=== PATIENT | male | born 1995 | race Caucasian/White ===

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

== ENCOUNTER 2018-02-18 10:16 | Emergency (ER) | payer BC, OTHER ==
--- NOTE | 2018-02-18 10:42 | EDM.PDOC ---
ED HPI GENERAL MEDICAL PROBLEM - General Chief Complaint: Skin Complaint Stated Complaint: BACK PAIN Time Seen by Provider: 02/18/18 10:30 Source of Information: Reports: Patient History Limitations: Reports: No Limitations - History of Present Illness INITIAL COMMENTS - FREE TEXT/NARRATIVE: HISTORY AND PHYSICAL: History of present illness: Patient is a 23-year-old male who presents to the emergency room today with complaints of pain to the right upper [place] near the tailbone where he has a firm "lump". He states he has had 2 prior pilonidal cysts which she popped myself" which did resolve after draining. He has noticed the area becoming firm , tender to touch and erythematous for the past 2-3 days. States there is increased pain when he sits or applies pressure to the tailbone area. He denies any fever, chills, chest pain, shortness of breath, cough. Denies any abdominal pain, nausea, vomiting, diarrhea or constipation. He has no GI or symptoms. Review of systems: As per history of present illness and below otherwise all systems reviewed and negative. Past medical history: As per history of present illness and as reviewed below otherwise noncontributory. Surgical history: As per history of present illness and as reviewed below otherwise noncontributory. Social history: No reported history of drug or alcohol abuse. Family history: As per history of present illness and as reviewed below otherwise noncontributory. Physical exam: General: Developed and well-nourished 23-year-old male. Alert and oriented. Nontoxic appearing and in no acute distress. HEENT: Atraumatic, normocephalic, pupils equal and reactive bilaterally, negative for conjunctival pallor or scleral icterus, mucous membranes moist, throat clear, neck supple, nontender, trachea midline. No drooling or trismus noted. No meningeal signs Lungs: Clear to auscultation, breath sounds equal bilaterally, chest nontender. Heart: S1S2, regular rate and rhythm without overt murmur Abdomen: Soft, nondistended, nontender. Negative for masses or hepatosplenomegaly. Negative for costovertebral tenderness. Pelvis: Stable nontender. Genitourinary: Deferred. Rectal: Deferred. Skin: Small localized area of erythematous located to the left upper medial glute (near tailbone), approximately 5-1/2 cm in diameter, semi-fluctuant. Tender with palpation. Otherwise skin is intact, warm, dry. No lesions or rashes noted. Extremities: Atraumatic, moves all extremities per self without difficulty or deficits. negative for cords or calf pain. Neurovascular unremarkable. Neuro: Awake, alert, oriented. Cranial nerves II through XII unremarkable. Cerebellum unremarkable. Motor and sensory unremarkable throughout. Exam nonfocal. Notes: Informed patient the need for CT at this time. He is agreeable to plan of care. I did offer him pain medication while waiting, he declines. We'll continue to monitor. CT shows a 3.42.9 cm subcutaneous fluid collection located along the superior aspect of the right gluteal cleft. No extension into the underlying coccyx or musculature, infected pilonidal cyst. 1220: Dr Horner is here, aware of patient. Requesting that an I&D with packing be done here. Will follow up with him in clinic. 1230: Area was anesthetized with 1% lidocaine. #11 blade was used to open the cyst; minimal amount of serosanguos fluid was expressed from the site. 1/4 inch iodoform gauze was packed into the site. Patient tolerated well. Dr Horner was at bedside; unable to express any additional fluid/pus from site. A nonstick dressing was a applied. Patient education was given for further management and signs and symptoms that would prompt him to return to the emergency room. We'll give him script for Cipro, Flagyl, and Diclofenac for pain. He declines any stronger pain medication. He is agreeable to following up with Dr. Roberts on Tuesday. Denies any further questions or concerns at this time. Diagnostics: CT abdomen and pelvis with contrast Therapeutics: Lidocaine, wound care Impression: Pilonidal cyst Plan: 1. Please keep the area clean and dry. Do not remove the packing your self. Changed every 24 hours. 2. Tylenol and/or ibuprofen as needed for pain management. Diclofenac is a nonnarcotic anti-inflammatory do not take this with any additional NSAID such as ibuprofen or Aleve, as it can cause stomach upset. Take with food 3. May want to take a stool softener to avoid straining during bowel movements. 4. Follow-up with Dr. Horner next week. Return to the ED as needed as discussed. Definitive disposition and diagnosis as appropriate pending reevaluation and review of above. Right [place] Pain Score (Numeric/FACES): 9 - Related Data Allergies Allergy/AdvReac Type Severity Reaction Status Date / Time No Known Allergies Allergy Verified 02/18/18 10:32 Home Meds: Home Meds . [No Known Home Meds] 12/17/16 [History] Past Medical History - Past Health History Medical/Surgical History: Denies Medical/Surgical History - Past Surgical History Musculoskeletal Surgical History: Reports: Other (See Below) Social & Family History - Family History Family Medical History: Noncontributory ED ROS GENERAL - Review of Systems Review Of Systems: ROS reveals no pertinent complaints other than HPI. ED EXAM, SKIN/RASH Exam: See Below (See dictation) Course - Vital Signs Last Recorded V/S: Last Vital Signs Temp 97.9 F 02/18/18 10:32 Pulse 108 H 02/18/18 10:32 Resp 18 02/18/18 10:32 BP Pulse Ox 97 02/18/18 10:32 - Orders/Labs/Meds Orders: Active Orders 24 hr Category Date Time Status Abdomen Pelvis w Cont [CT] Stat Exams 02/18/18 10:31 Taken Meds: Medications Discontinued Medications Generic Name Dose Route Start Last Admin Trade Name Freq PRN Reason Stop Dose Admin Lidocaine HCl 5 ml 02/18/18 12:23 02/18/18 12:58 Xylocaine-Mpf 1% INJECT 02/18/18 12:24 4 ml ONETIME ONE Administration Lidocaine/Epinephrine Confirm 02/18/18 12:49 02/18/18 12:58 Xylocaine 1% With Epinephrine 1:100,000 Administered 02/18/18 12:50 Not Given Dose 20 ml .ROUTE .STK-MED ONE Departure - Departure Time of Disposition: 12:36 Disposition: Home, Self-Care 01 Clinical Impression: Pilonidal cyst - Discharge Information Instructions: Pilonidal Cyst Referrals: PCP,None [Primary Care Provider] - Forms: ED Department Discharge Additional Instructions: The following information is given to patients seen in the emergency department who are being discharged to home. This information is to outline your options for follow-up care. We provide all patients seen in our emergency department with a follow-up referral. The need for follow-up, as well as the timing and circumstances, are variable depending upon the specifics of your emergency department visit. If you don't have a primary care physician on staff, we will provide you with a referral. We always advise you to contact your personal physician following an emergency department visit to inform them of the circumstance of the visit and for follow-up with them and/or the need for any referrals to a consulting specialist. The emergency department will also refer you to a specialist when appropriate. This referral assures that you have the opportunity for follow-up care with a specialist. All of these measure are taken in an effort to provide you with optimal care, which includes your follow-up. Under all circumstances we always encourage you to contact your private physician who remains a resource for coordinating your care. When calling for follow-up care, please make the office aware that this follow-up is from your recent emergency room visit. If for any reason you are refused follow-up, please contact the [facility] Emergency Department at and asked to speak to the emergency department charge nurse. [facility] [address] [place] [id number] [facility] Specialty Care - General Surgery (Dr. Horner) Professional Building [address] [place] [address], [address] [place] [address] 1. Please keep the area clean and dry. Do not remove the packing your self. Antibiotic as prescribed. No alcohol use with this (continued 24 hours after completing antibiotics, as you can get severe vomiting) 2. Tylenol and/or ibuprofen as needed for pain management. Diclofenac is a nonnarcotic anti-inflammatory do not take this with any additional NSAID such as ibuprofen or Aleve, as it can cause stomach upset. Take with food 3. May want to take a stool softener to avoid straining during bowel movements. 4. Follow-up with Dr. Horner next week. Return to the ED as needed as discussed. - My Orders Last 24 Hours: My Active Orders 02/18/18 10:31 Abdomen Pelvis w Cont [CT] Stat - Assessment/Plan Last 24 Hours: My Active Orders 02/18/18 10:31 Abdomen Pelvis w Cont [CT] Stat
[2018-02-18] MEDS ORDERED: Lidocaine 1% with EPINEPHrine 1:100,000 20 ML MDV ONE (12:49)
[2018-02-18] MEDS ORDERED: Iopamidol 755 MG/ML 500 ML Multipack Bottle IVPUSH STA (18:56)
[2018-02-18 19:17] VITALS: BP 155/85
--- NOTE | 2018-02-20 13:47 | CT ---
EXAM DATE: 02/18/18 PATIENT'S AGE: 23 Patient: ENRIQUETA SANDHU Facility: [place], [place] Site . Site : 1995 Study: CT Abdomen/Pelvis [id number]/16/2018 11:24:02 AM Ordering Physician: Doctor Villasenor Final Report: INDICATION: Gluteal cyst. TECHNIQUE: CT scan of the abdomen and pelvis with 100 cc of Isovue-370 given intravenously. FINDINGS: The lung bases are unremarkable. No focal abnormalities identified in the visualized portions of the liver, spleen, pancreas, adrenal glands, and kidneys. No hydronephrosis. No obstructing uroliths. The GI tract is incompletely distended but shows no gross abnormalities. The stomach and GE junction are not well assessed. Normal appendix. No retroperitoneal, pelvic sidewall, or mesenteric adenopathy. Rim enhancing 3.4 x 2.9 cm subcutaneous fluid collection located along the superior aspect of the gluteal cleft. No extension to the underlying coccyx or musculature. IMPRESSION: Infected pilonidal cyst. Dictated by Nathaniel Garza MD @ 02/18/2018 11:54:37 AM Dictated by: Nathaniel Garza MD @ 02/18/2018 11:55:01 (Electronic Signature) Report Signed by Proxy. [facility]
== END 2018-02-18 13:17 | disposition home or self-care (01) ==
LOC: MW.ED 10:16
DX: L05.91 Pilonidal cyst without abscess (principal)
CPT/HCPCS: 74177; 99283; Q9967

== ENCOUNTER 2022-07-22 10:27 | Day surgery (SDC) | payer BC ==
[~2022-07-22 10:27] MED LIST: Albuterol 0.083% 2.5 MG/3 ML Neb Soln NEB PRN; HYDROmorphone 1 MG/ML Syringe IVPUSH PRN; Metoclopramide 10 MG/2 ML SDV IVPUSH PRN; Midazolam 1 MG/ML 2 ML SDV ONE; Morphine 2 MG/ML SYRINGE IVPUSH PRN; Naloxone 0.4 MG/ML SDV IVPUSH PRN; Ondansetron 4 MG/2 ML SDV IVPUSH PRN; Propofol 200 MG/20 ML SDV ONE; fentaNYL 100 MCG/2 ML SDV ONE; fentaNYL 50 MCG/ML SDV IVPUSH PRN
[2022-07-22] MEDS ORDERED: Bupivacaine 0.5% 30 ML SDV ONE (10:49)
[2022-07-22] MEDS ORDERED: cefOXitin 1 GM Vial ONE (11:39)
[2022-07-22] MEDS ORDERED: Lactated Ringers 1,000 ML IV SCH (11:45)
[2022-07-22 12:34] VITALS: BP 95/45
[2022-07-22 13:10] VITALS: PULSE 71
== END 2022-07-22 14:10 | disposition home or self-care (01) ==
LOC: MW.SDS 10:27
PROVIDERS: ATTEND Surgery
DX: L05.01 Pilonidal cyst with abscess (principal); F41.9 Anxiety disorder, unspecified; E66.9 Obesity, unspecified; F32.A Depression, unspecified; Z68.41 Body mass index [BMI] 40.0-44.9, adult; Z79.899 Other long term (current) drug therapy; Z98.890 Other specified postprocedural states
CPT/HCPCS: 10081; J0694; J2250; J3010; J3490; J7030; J7120; 00300; J2704